=== PATIENT | female | born 1995 | race Caucasian/White ===

== ENCOUNTER 2020-02-01 11:32 | Emergency (ER) | payer OTHER ==
[~2020-02-01] VITALS: Ht 170.2 cm; Wt 69.4 kg
[2020-02-01 11:35] VITALS: BP 122/77
[2020-02-01] MEDS: MORPHINE SULFATE 4 MG/ML SYR IM ONE (11:54)
[2020-02-01 12:04] VITALS: BP 122/77
== END 2020-02-01 12:04 | disposition home or self-care (01) ==
LOC: MED 11:32
DX: M54.89 Other dorsalgia (principal)
CPT/HCPCS: 81002; 81025; 96372; 99283; J2270

== ENCOUNTER 2020-06-25 13:43 | Emergency (ER) | payer OTHER ==
[~2020-06-25] VITALS: Ht 170.2 cm; Wt 70.3 kg
[2020-06-25 13:50] VITALS: BP 114/82
--- NOTE | 2020-06-25 13:55 | NUR ---
PT AMBULATED TO BED 02.
--- NOTE | 2020-06-25 14:30 | NUR ---
24 YEAR OLD FEMALE COMPLAINS OF VAGINAL BLEEDING AND CRAMPING PAIN X 5 DAYS. PT STATES THAT PAIN STARTED AFTER IUD REMOVAL. PT AOX4, BREATHING EVEN AND UNLABORED, SKIN WARM AND DRY. BED IN LOWEST POSITION, LOCKED, BED RAIL UPX1. PMH - DENIES ALLERGIES - NKA
[2020-06-25 14:40] LABS: APPEARANCE,URINE SL CLOUDY (CLEAR); BILIRUBIN,URINE NEGATIVE (NEGATIVE); BLOOD, URINE 3+ (NEGATIVE); LEUKOCYTE ESTERASE ,URINE TRACE (NEGATIVE); NITRITE, URINE NEGATIVE (NEGATIVE); PH,URINE 7.5 (5.0-9.0); UGLUCOSE NEGATIVE (NEGATIVE)
[2020-06-25 14:42] LABS: COLOR,URINE SLIGHT BLOODY (YELLOW)
[2020-06-25 14:49] LABS: BASOPHILS % (AUTO) 0.4 % (0.0-2.0); EOSINOPHILS # (AUTO) 0.1 K/uL (0-0.4); EOSINOPHILS % (AUTO) 0.7 % (0.0-4.0); HEMATOCRIT 37.9 % (36-48); HEMOGLOBIN 12.6 g/dL (12.0-16.0); LYMPHOCYTES # (AUTO) 2.5 K/uL (2.5-16.5); LYMPHOCYTES % (AUTO) 34.4 % (20.5-51.1); MEAN CORPUSCULAR HEMOGLOBIN 33 pg (27-31); MEAN CORPUSCULAR HGB CONC 33 g/dL (33-37); MONOCYTES # (AUTO) 0.5 K/uL (0.8-1.0); MONOCYTES % (AUTO) 7.3 % (1.7-9.3); NEUTROPHILS # (AUTO) 4.2 K/uL (1.8-7.7); NEUTROPHILS % (AUTO) 57.2 % (42.2-75.2); PLATELET COUNT (AUTO) 216 K/uL (140-450); RED BLOOD CELL COUNT(AUTO) 3.82 MIL/uL (4.20-5.40); RED CELL DISTRIBUTION WIDTH 12.6 % (11.6-13.7); WHITE BLOOD COUNT (AUTO) 7.3 K/uL (4.8-10.8)
[2020-06-25 15:01] LABS: RBC,URINE TOO NUMEROUS TO COUN /HPF (0-5); WBC,URINE 0-5 /HPF (0-5)
[2020-06-25 15:14] LABS: ANION GAP 10.4 (8-16); CARBON DIOXIDE 27.6 mmol/L (21-32); CREATININE 0.9 mg/dL (0.6-1.3)
[2020-06-25 15:33] VITALS: BP 118/81
--- NOTE | 2020-06-25 15:34 | NUR ---
Patient discharged with v/s stable. Written and verbal after care instructions given and explained. Patient verbalized understanding. Ambulatory with steady gait. All questions addressed prior to discharge. Advised to follow up with PMD.
== END 2020-06-25 15:34 | disposition home or self-care (01) ==
LOC: MED 13:43
DX: T83.39XA Other mechanical complication of intrauterine contraceptive device, initial encounter (principal); N93.9 Abnormal uterine and vaginal bleeding, unspecified; R42 Dizziness and giddiness; Y93.89 Activity, other specified
CPT/HCPCS: 36415; 80048; 81001; 81025; 85025; 99283